=== PATIENT | female | born 1995 | race Caucasian/White ===

== ENCOUNTER 2018-03-26 10:09 | Outpatient (CLI) | payer OTHER, SELFPAY ==
[2018-03-26 11:07] LABS: Abs Immature Grans 0.01 k/cumm (0.0-0.09); Absolute Basophil Count 0.01 k/cumm (0.0-0.2); Absolute Eosinophil Count 0.02 k/cumm (0.0-0.7); Absolute Lymphocyte Count 1.48 k/cumm (1.2-3.4); Absolute Monocyte Count 0.63 k/cumm (0.11-0.7); Absolute Neutrophil Count 6.79 k/cumm (1.2-6.7); Basophils % 0.1; Eosinophils % 0.2; HCT 36.6 % (36.0-46.0); HGB 12.7 g/dL (12.0-15.5); Immature Grans % 0.1; Lymphocytes % 16.6; Mean Corp. HGB Concentration 34.7 g/dL (32.0-36.0); Mean Corpuscular Hemoglobin 31.2 pg (27.0-33.0); Mean Corpuscular Volume 89.9 fL (80-95); Mean Platelet Volume 9.6 fL (8.0-11.0); Platelet Count 324 x1000/uL (130-400); RBC 4.07 m/cumm (4.00-5.20); RBC Distribution Width 11.8 % (11.7-14.6); White Blood Cell Count 8.94 k/cumm (4.4-10.8)
[2018-03-26 12:11] LABS: TSH (W/Ref FT4) 2.01 uIU/mL (0.358-3.74)
[2018-03-27 10:13] LABS: HIV-1/2 Ag & Ab Screen Negative (NEGAT)
[2018-03-29 10:14] LABS: Hepatitis B Surface Ag Negative (NEGAT)
[2018-03-29 11:01] LABS: Hepatitis C Ab w Rflx HCV PCR Negative (NEGAT)
[2018-03-29 12:41] LABS: Syphilis Serology (RPR) Negative (Negative); Varicella IgG Antibody Positive
[2018-03-29 12:49] LABS: Rubella IgG Ab (UVM) Positive
== END 2018-03-26 10:29 ==
PROVIDERS: PCP Nurse Practitioner Pediatrics; Visit Provider Advanced Practice Midwife
DX: Z34.01 Encounter for supervision of normal first pregnancy, first trimester (principal); Z01.84 Encounter for antibody response examination; Z11.4 Encounter for screening for human immunodeficiency virus [HIV]; Z11.59 Encounter for screening for other viral diseases; Z11.3 Encounter for screening for infections with a predominantly sexual mode of transmission
CPT/HCPCS: 36415; 80055; 86787; 86803; 86850; 86900; 86901; 87340; 87389; 84443; 86592; 86762

== ENCOUNTER 2018-03-26 11:52 | Outpatient (REF) | payer OTHER, SELFPAY ==
--- NOTE | 2018-03-26 09:00 | PAPFT_PTH ---
PATIENT: Sejal Kelly LOC: [facility] U#:[id number] AGE/SX: 22/F ROOM: RE03/26/[address]: Devika Shaw CNM : 1995 BED: DIS: 03/26/2018 SPEC #: [id number] RECD: 03/26/18 13:11 STATUS: ISABELLA REQ #: [id number] TERI: 03/26/18 09:[address]: Devika Shaw DEPT: [facility] Cytology RECD BY: Jordana Reeves ENTERED: 03/26/18 13:11 SP TYPE: PAPFT OTHR DR: Katie Ballesteros Tissues: 1 - CX/ENDOCX FOR PAP SMEARS Procedures: PAP THIN PREP/UVM Screening HPV DNA PROBE Comments: [id number]
[2018-03-26 13:34] LABS: *AMPHETAMINES SCREEN URINE Negative (Negative); *BARBITURATES SCREEN URINE Negative (Negative); *BENZODIAZEPINES SCREEN URINE Negative (Negative); Cannabinoids THC Negative (Negative); Cocaine Screen,Urine Negative (Negative); METHADONE URINE SCREEN Negative (Negative); OPIATES URINE SCREEN Negative (Negative)
[2018-03-26 13:35] LABS: Tricyclic Antidepressants Negative (Negative)
[2018-03-29 14:57] LABS: GC Result Negative; Specimen Description CERVIX
[2018-03-29 15:08] LABS: Chlamydia Result Positive
[2018-03-31 08:09] LABS: Buprenorphine Negative; Norbuprenorphine Negative
== END 2018-03-26 12:12 ==
LOC: LBN 11:52
PROVIDERS: PCP Nurse Practitioner Pediatrics; Visit Provider Advanced Practice Midwife
DX: Z12.4 Encounter for screening for malignant neoplasm of cervix (principal); Z11.3 Encounter for screening for infections with a predominantly sexual mode of transmission; Z34.01 Encounter for supervision of normal first pregnancy, first trimester
CPT/HCPCS: 80307; 87077; 87491; 87591; 88142; 87086; 87624

== ENCOUNTER 2018-04-12 15:51 | Outpatient (CLI) | payer OTHER, SELFPAY ==
--- NOTE | 2018-04-12 09:00 | DI.US_ITS ---
SYMPTOMS/DIAGNOSIS: DI-MONO TWINS WITH NO HEART RATE AT 13 WEEKS ESTIMATE GESTATIONAL AGE, O02.1-MISSED OB ULTRASOUND: Many abnormalities cannot be diagnosed. A normal exam does not exclude a congenital anomaly. Radiology No. [id number] LMP: Exam Date: 04/12/18 [facility] wks days on EDC ([facility]) Confirmed: HISTORY: ---- PREDICTED GESTATIONAL AGE NUMBER 13+2 weeks with a range of 12+2 weeks to 14+2 weeks. 2 Determined by_X__1STUS___LMP___HISTORY Info. pertaining to fetus A PLACENTA PRESENTATION Grade Cephalic___ Anterior___Posterior___ Breech____ Right Left Transverse(head right___ Fundal___Low-lying___Previa___ Transverse(head left___ Varying BIOMETRY AMNIOTIC FLUID BPD: mm weeks Normal HC: mm weeks Oligo Polyhydramnios AC: mm weeks FL: mm weeks AMNIOTIC FLUID INDEX >26 WK CRL: 22 mm 8+6 weeks Cisterna Magna: mm CI: RUQ: LUQ Cerebellum: cm EFW: grams Percentile RLQ: LLQ Total: cms Composite AGE= wks EDC by US BIOPHYSICAL PROFILE ANATOMY IDENTIFIED SCORE 0/2 Heart: 4-Chamber___Rate: NO HEART RATE LVOT: RVOT: Amniotic Fluid(>2cms)____ Stomach: Kidneys: Respirations (>30 secs) Bladder: Post. Fossa: Body Flex/Extension 3 vessel cord: Ventricles: cord insertion: Lips:____ Extremity Flex/Extension spinal morphology: Nose: Total Score= Palate: NS=not seen Many abnormalities cannot be diagnosed. A normal exam does not exclude a congenital anomaly. Radiology No. [id number] LMP: Exam Date: 04/12/18 [facility] wks days on EDC ([facility]) Confirmed: HISTORY: ---- PREDICTED GESTATIONAL AGE NUMBER 13+2 weeks with a range of 12+2 weeks to 14+2 weeks. 2 Determined by_X__1STUS___LMP___HISTORY Info. pertaining to fetus B PLACENTA PRESENTATION Grade Cephalic___ Anterior___Posterior___ Breech____ Right Left Transverse(head right___ Fundal___Low-lying___Previa___ Transverse(head left___ Varying BIOMETRY AMNIOTIC FLUID BPD: mm weeks Normal HC: mm weeks Oligo Polyhydramnios AC: mm weeks FL: mm weeks AMNIOTIC FLUID INDEX >26 WK CRL: 22 mm 8+6 weeks Cisterna Magna: mm CI: RUQ: LUQ Cerebellum: cm EFW: grams Percentile RLQ: LLQ Total: cms Composite AGE= wks EDC by US BIOPHYSICAL PROFILE ANATOMY IDENTIFIED SCORE 0/2 Heart: 4-Chamber___Rate: NO HEART RATE LVOT: RVOT: Amniotic Fluid(>2cms)____ Stomach: Kidneys: Respirations (>30 secs) Bladder: Post. Fossa: Body Flex/Extension 3 vessel cord: Ventricles: cord insertion: Lips:____ Extremity Flex/Extension spinal morphology: Nose: Total Score= Palate: NS=not seen COMMENTS: There are no prior comparison exams. There is a twin gestation. Two poles are identified with crown-rump length measurements corresponding to 8 weeks 6 days, which is significantly less than the predicted gestational age. No cardiac activity is identified. IMPRESSION: Nonviable twin gestation.
== END 2018-04-12 16:11 ==
PROVIDERS: PCP Nurse Practitioner Pediatrics; Visit Provider Obstetrics & Gynecology Gynecology
DX: O02.1 Missed abortion (principal)
CPT/HCPCS: 76801; 76802

== ENCOUNTER 2018-04-14 06:10 | Day surgery (SDC) | payer OTHER, SELFPAY ==
[2018-04-14] VITALS (7 sets, daily range): BP systolic 110–129; BP diastolic 66–79; PULSE 71–100; RESP 10–23; TEMP 36.3–37.8; O2SAT 96–100
[2018-04-14 06:54] LABS: HCT 39.8 % (36.0-46.0); HGB 13.9 g/dL (12.0-15.5); Mean Corp. HGB Concentration 34.9 g/dL (32.0-36.0); Mean Corpuscular Hemoglobin 31.4 pg (27.0-33.0); Mean Platelet Volume 10.2 fL (8.0-11.0); Platelet Count 309 x1000/uL (130-400); RBC 4.42 m/cumm (4.00-5.20); RBC Distribution Width 11.8 % (11.7-14.6); White Blood Cell Count 11.81 k/cumm (4.4-10.8)
[2018-04-14] MEDS: DOXYCYCLINE 100 MG in Normal Saline 100 ML IVPB (07:04)
[2018-04-14] MEDS: Lactated Ringers 1,000 ML 125 ML IV (07:04)
[2018-04-14] MEDS: Bupivacaine 0.25% Pres-Free 30 ML VIAL (08:10)
--- NOTE | 2018-04-14 08:10 | POCSPONT_PTH ---
PATIENT: Sejal Kelly LOC: [facility] U#:[id number] AGE/SX: 22/F ROOM: RE04/14/[address]: Shanell Frazier : 1995 BED: DIS: 04/14/2018 SPEC #: [id number] RECD: 04/14/18 12:43 STATUS: ISABELLA REQ #: [id number] TERI: 04/14/18 08:[address]: Shanell Frazier DEPT: Surgical Specimen RECD BY: Jordana Reeves ENTERED: 04/14/18 12:43 SP TYPE: POCSPONT OTHR DR: Katie Ballesteros Tissues: 1 - ,SPONTANEOUS Procedures: GROSS AND MICRO LEVEL 4 IMMUNOPEROXIDASE STAIN POC Aneuploidy Detection, FISH Comments: [id number]
[2018-04-14] MEDS: Silver Nitrate Stick 1 EACH (08:25)
--- NOTE | 2018-04-15 17:25 | ROE_ITS ---
DATE OF PROCEDURE: April 14, 2018 PREOPERATIVE DIAGNOSIS: Embryonic demise of a twin gestation at 13 weeks and 2 days. POSTOPERATIVE DIAGNOSIS: Same. PROCEDURE: Cervical dilatation and uterine suction evacuation of tissue. SURGEON: Shanell Frazier M.D. GRAPPLE YARDER OPERATOR: None. ANESTHESIA: Monitored anesthesia care by Mario Wisdom CRNA, and AUDREY Ramos. FLUIDS: 500 cc of crystalloid. URINE OUTPUT: The patient voided prior to the OR. ESTIMATED BLOOD LOSS: 10 cc DRAINS: None. SPECIMENS: Products of conception to Pathology. COMPLICATIONS: None. DISPOSITION: Awakened, alert, to recovery area in stable condition. INDICATIONS: Nevbpr-krh-gwzj-old, G1, P0 female with a document diamnionic-monochorionic twin gestat ion diagnosed at 9 weeks' estimated gestational age. The patient was found to have a nonviable pregn rico on a routine follow-up ultrasound performed at [facility] at 13 weeks 2 days. Confirmatory ultrasound was performed in Diagnostic Imaging. poles were present but no evidenc e of heart rates and the crown-rump length of both fetuses was approximately 7 weeks 5 days. T he patient was counseled regarding the risks of expectant management versus the risks of a dilatation and curettage and I strongly recommended dilatation and curettage, which she agreed to. FINDINGS AT THE TIME OF SURGERY: The uterus sounded to 10 cm. I was able to deliver intact the amni otic sac and attached chorion. The uterus responded well to fundal massage. DESCRIPTION OF PROCEDURE: The patient was taken to the Operating Room and placed in the dorsal supin e position. Monitored anesthesia care was administered without difficulty. She was then placed in t he dorsal lithotomy position with Yellofin stirrups and SCDs in place. A bivalve speculum was placed in the vagina. The anterior lip of the cervix was grasped with a single-tooth tenaculum and a parac ervical block using 5 cc of 0.25% Marcaine without epinephrine was injected into the paracervical spa ce at the 4 and 8 o'clock positions respectively. The vagina and perineum was prepped and draped tony or to the insertion of the speculum and the paracervical block. The cervix was sequentially dilated to a maximum of 19 German. An 8-mm curved suction cannula was linda anju into the uterine cavity and all four quadrants of the uterine cavity were sequentially dilated. Amniotic fluid was returned, followed by the products of conception which were then teased out intact with a ring forceps. A second pass of the suction cannula obtained more products of conception. A banjo curette was then used to curette all four quadrants of the uterine cavity until a gritty textur e was returned and minimal tissue was recovered. The banjo curette was removed and a final pass of t he suction curette was performed, once again with very little tissue returns. The instruments were r emoved from the patient's vagina. The tenaculum site was noted to be hemostatic. All sponge, lap, and needle counts were correct x2.
== END 2018-04-14 10:14 | disposition home or self-care (01) ==
LOC: SUR 06:11
PROVIDERS: PCP Nurse Practitioner Pediatrics; Visit Provider Obstetrics & Gynecology Gynecology
PROC: (CPT 59841; principal; 2018-04-14 07:30)
DX: O02.1 Missed abortion (principal)
CPT/HCPCS: 59820; 36415; 85027; 86850; 86900; 86901; 88305; 88271; 88291; 88361; J0131; J1100; J1885; J2250; J2405; J3010

== ENCOUNTER 2019-01-25 14:05 | Outpatient (REF) | payer OTHER, SELFPAY ==
[2019-01-26 13:32] LABS: Chlamydia Result Negative; GC Result Negative; Specimen Description URINE
== END 2019-01-25 14:25 ==
LOC: LBN 14:05
PROVIDERS: Visit Provider Nurse Practitioner Family
DX: Z11.3 Encounter for screening for infections with a predominantly sexual mode of transmission (principal)
CPT/HCPCS: 87491; 87591

== ENCOUNTER 2019-02-15 15:34 | Outpatient (REF) | payer OTHER, SELFPAY ==
--- NOTE | 2019-02-15 14:00 | PAPFT_PTH ---
PATIENT: Sejal Kelly LOC: [facility] U#:[id number] AGE/SX: 23/F ROOM: RE02/15/[address]: Devika Shaw CNM : 1995 BED: DIS: 02/15/2019 SPEC #: [id number] RECD: 02/15/19 17:57 STATUS: ISABELLA REQ #: [id number] TERI: 02/15/19 14:[address]: Devika Shaw [facility] Cytology RECD BY: Jordana Reeves ENTERED: 02/15/19 17:58 SP TYPE: PAPFT OTHR DR: Unknown,Unknown Tissues: 1 - CX/ENDOCX FOR PAP SMEARS Procedures: PAP THIN PREP/UVM Screening HPV DNA PROBE Comments: [id number] (CHLAMYDIA/GC)
[2019-02-15 16:52] LABS: *AMPHETAMINES SCREEN URINE Negative (Negative); *BARBITURATES SCREEN URINE Negative (Negative); *BENZODIAZEPINES SCREEN URINE Negative (Negative); Cannabinoids THC Negative (Negative); Cocaine Screen,Urine Negative (Negative); METHADONE URINE SCREEN Negative (Negative); OPIATES URINE SCREEN Negative (Negative)
[2019-02-15 17:09] LABS: Tricyclic Antidepressants Negative (Negative)
[2019-02-16 13:55] LABS: Chlamydia Result Negative; GC Result Negative; Specimen Description SEE COMMENTS
[2019-02-23 16:08] LABS: Buprenorphine Negative; Norbuprenorphine Negative
== END 2019-02-15 15:54 ==
LOC: LBN 15:34
PROVIDERS: Visit Provider Advanced Practice Midwife
DX: Z34.91 Encounter for supervision of normal pregnancy, unspecified, first trimester (principal); Z11.3 Encounter for screening for infections with a predominantly sexual mode of transmission; Z12.4 Encounter for screening for malignant neoplasm of cervix
CPT/HCPCS: 80307; 87491; 87591; 88142; 87086; 87624

== ENCOUNTER 2019-02-19 08:45 | Outpatient (CLI) | payer OTHER, SELFPAY ==
[2019-02-19 09:45] LABS: Abs Immature Grans 0.01 k/cumm (0.0-0.09); Absolute Basophil Count 0.02 k/cumm (0.0-0.2); Absolute Eosinophil Count 0.07 k/cumm (0.0-0.7); Absolute Lymphocyte Count 1.39 k/cumm (1.2-3.4); Absolute Monocyte Count 0.52 k/cumm (0.11-0.7); Absolute Neutrophil Count 5.87 k/cumm (1.2-6.7); Basophils % 0.3; Eosinophils % 0.9; HCT 37.9 % (36.0-46.0); HGB 13.1 g/dL (12.0-15.5); Immature Grans % 0.1; Lymphocytes % 17.6; Mean Corp. HGB Concentration 34.6 g/dL (32.0-36.0); Mean Corpuscular Volume 89.6 fL (80-95); Mean Platelet Volume 9.4 fL (8.0-11.0); Monocytes % 6.6; Neutrophils % 74.5; Platelet Count 346 x1000/uL (130-400); RBC 4.23 m/cumm (4.00-5.20); RBC Distribution Width 11.7 % (11.7-14.6); White Blood Cell Count 7.88 k/cumm (4.4-10.8)
[2019-02-19 10:01] LABS: Glucose,1 Hr (Glucola) 101 mg/dL (80-140)
[2019-02-19 11:13] LABS: TSH (W/Ref FT4) 1.88 uIU/mL (0.36-3.74)
[2019-02-21 10:58] LABS: Rubella IgG Ab (UVM) Positive
[2019-02-21 11:29] LABS: Hepatitis B Surface Ag Negative (NEGAT)
[2019-02-21 11:33] LABS: Hepatitis C Ab w Rflx HCV PCR Negative (NEGAT)
[2019-02-21 11:34] LABS: HIV-1/2 Ag & Ab Screen Negative (NEGAT)
[2019-02-21 11:41] LABS: Varicella IgG Antibody Positive
[2019-02-22 13:04] LABS: Syphilis Total Ab w/Reflex Nonreactive (Nonreactive)
== END 2019-02-19 09:05 ==
PROVIDERS: Visit Provider Advanced Practice Midwife
DX: Z34.91 Encounter for supervision of normal pregnancy, unspecified, first trimester (principal); Z11.59 Encounter for screening for other viral diseases; Z11.4 Encounter for screening for human immunodeficiency virus [HIV]
CPT/HCPCS: 36415; 82950; 86787; 86803; 87340; 87389; 84443; 85025; 86762; 86780

== ENCOUNTER 2019-04-12 01:18 | Outpatient (CLI) | payer OTHER, SELFPAY ==
--- NOTE | 2019-04-12 12:27 | DI.US_ITS ---
EXAM: US OB 2-3 TRIMESTER CLINICAL HISTORY: survey Z34.90 SUPERVISION NORMAL TECHNIQUE: Ultrasound performed using standard protocol. COMPARISON: No exams were available for comparison FINDINGS: Fetus is in cephalic position. The placenta is posterior. The biometric measurements correspond to 17 weeks 5 days which is consistent with predicted gestational age. No abnormalities are seen . The amniotic fluid appears visually normal in volume. IMPRESSION: survey is within normal limits.
== END 2019-04-12 01:38 ==
PROVIDERS: Visit Provider Advanced Practice Midwife
DX: Z34.92 Encounter for supervision of normal pregnancy, unspecified, second trimester (principal)
CPT/HCPCS: 76805

== ENCOUNTER 2019-06-28 08:15 | Outpatient (CLI) | payer OTHER, SELFPAY ==
[2019-06-28 08:44] LABS: Glucose,1 Hr (Glucola) 131 mg/dL (80-140)
[2019-06-28 08:46] LABS: HCT 33.7 % (36.0-46.0); HGB 11.5 g/dL (12.0-15.5); Mean Corp. HGB Concentration 34.1 g/dL (32.0-36.0); Mean Corpuscular Volume 90.8 fL (80-95); Mean Platelet Volume 9.1 fL (8.0-11.0); Platelet Count 288 x1000/uL (130-400); RBC 3.71 m/cumm (4.00-5.20); RBC Distribution Width 12.8 % (11.7-14.6); White Blood Cell Count 9.59 k/cumm (4.4-10.8)
== END 2019-06-28 08:35 ==
PROVIDERS: Advanced Practice Midwife; Visit Provider Advanced Practice Midwife
DX: Z34.92 Encounter for supervision of normal pregnancy, unspecified, second trimester (principal)
CPT/HCPCS: 36415; 82950; 85027

== ENCOUNTER 2019-08-23 12:53 | Outpatient (REF) | payer OTHER, SELFPAY ==
[2019-08-23 14:21] LABS: *AMPHETAMINES SCREEN URINE Negative (Negative); *BARBITURATES SCREEN URINE Negative (Negative); *BENZODIAZEPINES SCREEN URINE Negative (Negative); Cannabinoids THC Negative (Negative); Cocaine Screen,Urine Negative (Negative); METHADONE URINE SCREEN Negative (Negative); OPIATES URINE SCREEN Negative (Negative); Tricyclic Antidepressants Negative (Negative)
[2019-08-26 11:34] LABS: Buprenorphine Negative; Norbuprenorphine Negative
== END 2019-08-23 13:13 ==
LOC: LBN 12:53
PROVIDERS: Visit Provider Advanced Practice Midwife
DX: Z34.93 Encounter for supervision of normal pregnancy, unspecified, third trimester (principal); Z36.85 Encounter for antenatal screening for Streptococcus B
CPT/HCPCS: 80307; 87081

== ENCOUNTER 2019-09-23 10:08 | Inpatient (IN) | payer OTHER, SELFPAY ==
[2019-09-23 09:07] LABS: ROM Plus Positive
[2019-09-23] MEDS: miSOPROStol 25 MCG TAB 50 MCG PO (10:39)
[2019-09-23 11:19] LABS: HCT 36.2 % (36.0-46.0); HGB 12.6 g/dL (12.0-15.5); Mean Corp. HGB Concentration 34.8 g/dL (32.0-36.0); Mean Corpuscular Hemoglobin 30.9 pg (27.0-33.0); Mean Corpuscular Volume 88.7 fL (80-95); Mean Platelet Volume 9.6 fL (8.0-11.0); Platelet Count 268 x1000/uL (130-400); RBC 4.08 m/cumm (4.00-5.20); RBC Distribution Width 12.9 % (11.7-14.6); White Blood Cell Count 11.37 k/cumm (4.4-10.8)
[2019-09-23] MEDS: miSOPROStol 25 MCG TAB PO (16:25)
[2019-09-23] MEDS: Lactated Ringers 1,000 ML 125 ML IV (20:46)
[2019-09-23] MEDS: miSOPROStol 25 MCG TAB (20:46)
[2019-09-23] MEDS: Zolpidem 5 MG TAB 10 MG PO (20:49)
[2019-09-24] MEDS: Hamamelis Leaf/Glycerin 100 EACH BOX PR (08:20)
[2019-09-24] MEDS: Acetaminophen 325 MG TAB 650 MG PO (08:20)
[2019-09-24] MEDS: Ibuprofen 600 MG TAB PO ×2 (08:21→23:50)
[2019-09-24] MEDS: oxyCODONE 5 mg/Acetaminophen 325 mg TAB 2 TAB PO ×3 (12:50→23:49)
[2019-09-24] MEDS: Docusate Sodium 100 MG CAP PO (23:50)
[2019-09-25 07:29] LABS: HCT 24.1 % (36.0-46.0); HGB 8.2 g/dL (12.0-15.5); Mean Corpuscular Hemoglobin 30.9 pg (27.0-33.0); Mean Corpuscular Volume 90.9 fL (80-95); Mean Platelet Volume 9.4 fL (8.0-11.0); Platelet Count 263 x1000/uL (130-400); RBC 2.65 m/cumm (4.00-5.20); RBC Distribution Width 12.9 % (11.7-14.6); White Blood Cell Count 12.12 k/cumm (4.4-10.8)
[2019-09-25] MEDS: oxyCODONE 5 mg/Acetaminophen 325 mg TAB 2 TAB PO ×2 (08:55→20:55)
[2019-09-25] MEDS: Ibuprofen 600 MG TAB PO ×2 (13:59→20:56)
[2019-09-25] MEDS: Docusate Sodium 100 MG CAP PO (20:56)
[2019-09-26] MEDS: Ibuprofen 600 MG TAB PO ×2 (06:32→13:41)
[2019-09-26] MEDS: oxyCODONE 5 mg/Acetaminophen 325 mg TAB 2 TAB PO (07:31)
[2019-09-26] MEDS: Docusate Sodium 100 MG CAP PO (13:41)
--- NOTE | 2019-09-29 14:38 | W.PM.OP ---
Date of service: 09/24/19 Time of Service: 06:45 Operative Note Operative Note DATE OF PROCEDURE: 09/24/19 PRE-OP DIAGNOSIS: Second-degree vaginal laceration, bilateral vaginal sulcus tears POST-OP DIAGNOSIS: same PROCEDURE: Repair of second-degree perineal laceration at bedside SURGEON: Shanell Frazier ASSEMBLIES AND INSTALLATIONS INSPECTOR: Lizy Washington ANESTHESIA: local ESTIMATED BLOOD LOSS: 300 PATHOLOGY: none sent COMPLICATIONS: None Patient was transported to: no change Patient's condition: stable Indications: 24-year-old G1 female who underwent a spontaneous vaginal delivery of a viable female infant weighing 7 pounds 3 ounces at approximately 06 29 on 09/24/2019. Patient sustained a second-degree laceration and Lizy Washington CNM, the delivering provider requested help with the repair. Findings: Avulsion of the vaginal epithelium from the right vaginal sidewall of the vaginal orifice. Complete tear through the bulbocavernosus and superficial transverse perineal muscle to the level of the capsule of the anal sphincter, which was intact. This is confirmed by a digital rectal exam. Procedure Description: A total of 10 cc of 1% lidocaine without epinephrine was infiltrated along the edges of the vaginal epithelium of the right sidewall and perineal body. A running suture of 2-0 Vicryl was used to reapproximate the epithelial edges of the skin avulsion along the right vaginal wall to the level of the introitus. The midline sulcus tear was reapproximated using a running suture of 3-0 Vicryl to the low the perineal body several small lacerations of the hymenal remnant were reapproximated also with 3-0 Vicryl for hemostasis. 2 interrupted sutures of 2-0 Vicryl were used to reapproximate the bulbocavernosus muscle followed by a end-to-end reapproximation of the superficial transverse perineal muscle once again using 2-0 Vicryl. Tissue of the perineal body was reapproximated with 2 interrupted sutures of 2-0 Vicryl. Subcuticular closure using 3-0 Vicryl was used to reapproximate the edges of the epithelium of the perineal body to the level of the vaginal orifice. Awls sponge and needle counts are correct x2
== END 2019-09-26 14:00 | disposition home or self-care (01) | DRG 768 ==
LOC: OBS 10:18
PROVIDERS: Admitting Provider Advanced Practice Midwife; Visit Provider Advanced Practice Midwife
DX: O48.0 Post-term pregnancy (principal); Z37.0 Single live birth; O70.20 Third degree perineal laceration during delivery, unspecified; Z3A.41 41 weeks gestation of pregnancy; O76 Abnormality in fetal heart rate and rhythm complicating labor and delivery; O90.89 Other complications of the puerperium, not elsewhere classified; I95.89 Other hypotension
CPT/HCPCS: 36415; 84112; 85027; 86850; 86900; 86901; 59025; J3490

== ENCOUNTER 2019-10-07 01:35 | Outpatient (CLI) | payer OTHER, SELFPAY ==
[2019-10-07 10:03] LABS: HCT 36.1 % (36.0-46.0); HGB 12.3 g/dL (12.0-15.5); Mean Corp. HGB Concentration 34.1 g/dL (32.0-36.0); Mean Corpuscular Hemoglobin 30.1 pg (27.0-33.0); Mean Corpuscular Volume 88.5 fL (80-95); Mean Platelet Volume 8.3 fL (8.0-11.0); RBC 4.08 m/cumm (4.00-5.20); RBC Distribution Width 12.3 % (11.7-14.6); White Blood Cell Count 8.87 k/cumm (4.4-10.8)
[2019-10-07 10:33] LABS: Platelet Count 621 x1000/uL (130-400)
== END 2019-10-07 01:55 ==
PROVIDERS: Visit Provider Advanced Practice Midwife
DX: D64.9 Anemia, unspecified (principal)
CPT/HCPCS: 36415; 85027

== ENCOUNTER 2020-10-12 01:29 | Outpatient (CLI) | payer OTHER, SELFPAY ==
[2020-10-12 15:25] LABS: Glucose,1 Hr (Glucola) 118 mg/dL (80-140)
[2020-10-12 15:26] LABS: Abs Immature Grans 0.04 10^3/uL (0.0-0.06); Absolute Basophil Count 0.02 10^3/uL (0.0-0.2); Absolute Eosinophil Count 0.16 10^3/uL (0.0-0.7); Absolute Lymphocyte Count 2.04 10^3/uL (1.2-3.4); Absolute Monocyte Count 0.47 10^3/uL (0.1-0.8); Basophils % 0.2; Eosinophils % 1.5; HCT 36.9 % (36.0-46.0); HGB 12.5 g/dL (11.2-15.7); Immature Grans % 0.4; MCHC 33.9 % (32.0-36.0); MCV 85.6 fL (80-95); MPV 9.3 fL (8.0-11.0); Monocytes % 4.4; Neutrophils % 74.5; Nucleated RBC 0 %; Platelet Count 361 10^3/uL (130-400); RBC 4.31 10^6/uL (3.93-5.22); RDW 12.1 % (11.7-14.6); RDW-SD 38.2 fL; WBC 10.73 10^3/uL (4.4-10.8)
[2020-10-12 16:03] LABS: TSH (W/Ref FT4) 1.46 uIU/mL (0.36-3.74)
[2020-10-15 10:12] LABS: HIV-1/2 Ag & Ab Screen Negative (Negative)
[2020-10-15 10:32] LABS: Varicella IgG Antibody Positive (See Note)
[2020-10-15 10:34] LABS: Rubella IgG Ab (UVM) Positive (See Note)
[2020-10-15 11:15] LABS: Hepatitis B Surface Ag Negative (Negative)
[2020-10-15 12:11] LABS: Hepatitis C Ab w Rflx HCV PCR Negative (Negative)
[2020-10-15 14:04] LABS: Syphilis Total Ab w/Reflex Nonreactive (Nonreactive)
== END 2020-10-12 01:30 | disposition home or self-care (01) ==
LOC: LBO 01:30
PROVIDERS: Visit Provider Advanced Practice Midwife
DX: Z34.91 Encounter for supervision of normal pregnancy, unspecified, first trimester (principal); Z11.4 Encounter for screening for human immunodeficiency virus [HIV]; Z11.59 Encounter for screening for other viral diseases; Z01.84 Encounter for antibody response examination
CPT/HCPCS: 36415; 80307; 82950; 86787; 86803; 86850; 86900; 86901; 87340; 87389; 84443; 85025; 86762; 86780

== ENCOUNTER 2020-10-12 15:35 | Outpatient (REF) | payer OTHER, SELFPAY ==
--- NOTE | 2020-10-12 14:30 | PAPFT_PTH ---
PATIENT: Sejal Kelly LOC: [facility] U#:[id number] AGE/SX: 25/F ROOM: RE10/12/[address]: Annette Walton : 1995 BED: DIS: 10/12/2020 SPEC #: [id number] RECD: 10/12/20 17:18 STATUS: ISABELLA REBailey #: [id number] TERI: 10/12/20 14:[address]: Annette Walton DEPT: [facility] Cytology RECD BY: Jordana Reeves ENTERED: 10/12/20 17:18 SP TYPE: PAPFT KVNG DR: Angela Valles Tissues: 1 - CX/ENDOCX FOR PAP SMEARS Procedures: PAP THIN PREP/UVM Screening Comments: [id number]
[2020-10-12 16:15] LABS: *AMPHETAMINES SCREEN URINE Negative (Negative); *BARBITURATES SCREEN URINE Negative (Negative); *BENZODIAZEPINES SCREEN URINE Negative (Negative); Cannabinoids THC Negative (Negative); Cocaine Screen,Urine Negative (Negative); METHADONE URINE SCREEN Negative (Negative); OPIATES URINE SCREEN Negative (Negative)
[2020-10-12 16:16] LABS: Tricyclic Antidepressants Negative (Negative)
[2020-10-17 07:12] LABS: Chlamydia Result Negative (Negative); GC Result Negative (Negative)
[2020-10-18 13:08] LABS: Buprenorphine Negative ng/mL (Cutoff: 5.0); Norbuprenorphine Negative ng/mL (Cutoff: 2.5)
== END 2020-10-12 15:36 | disposition home or self-care (01) ==
LOC: LBN 15:35
PROVIDERS: Visit Provider Advanced Practice Midwife
DX: Z34.91 Encounter for supervision of normal pregnancy, unspecified, first trimester (principal); Z11.3 Encounter for screening for infections with a predominantly sexual mode of transmission; Z12.4 Encounter for screening for malignant neoplasm of cervix; Z87.42 Personal history of other diseases of the female genital tract
CPT/HCPCS: 80307; 87491; 87591; 88142; 87086

== ENCOUNTER 2021-01-30 03:34 | Outpatient (CLI) | payer OTHER, SELFPAY ==
[2021-01-30 11:55] LABS: HCT 32.4 % (36.0-46.0); HGB 10.7 g/dL (11.2-15.7); MCV 87.8 fL (80-95); MPV 9.5 fL (8.0-11.0); Platelet Count 283 10^3/uL (130-400); RBC 3.69 10^6/uL (3.93-5.22); RDW 12.9 % (11.7-14.6); RDW-SD 41.1 fL; WBC 10.57 10^3/uL (4.4-10.8)
[2021-01-30 12:02] LABS: Glucose,1 Hr (Glucola) 123 mg/dL (80-140)
== END 2021-01-30 03:35 | disposition home or self-care (01) ==
LOC: LBO 03:35
PROVIDERS: Visit Provider Advanced Practice Midwife
DX: Z34.93 Encounter for supervision of normal pregnancy, unspecified, third trimester (principal); Z3A.28 28 weeks gestation of pregnancy
CPT/HCPCS: 36415; 82950; 85027

== ENCOUNTER 2021-03-19 01:39 | Outpatient (CLI) | payer OTHER, SELFPAY ==
--- NOTE | 2021-03-19 07:45 | DI.US_ITS ---
Exam(s) US OB AVA WEIGHT EXAM: US OB AVA WEIGHT CLINICAL HISTORY: size greater than dates on 3 visits,O26.849. TECHNIQUE: Transabdominal obstetrical ultrasound performed. COMPARISON: US US OB 2-3 TRIMESTER from 12/05/2020 FINDINGS: Transabdominal obstetrical ultrasound performed. FINDINGS: Number of fetuses: One. position: Cephalic. Placental location: There is a grade 2 anterior placenta. No evidence of previa. BIOMETRIC DATA: BPD: 87 mm = 35 weeks 1 day HC: 318 mm = 35 weeks 6 days AC: 329 mm = 36 weeks 6 days FL: 69 mm = 35 weeks 3 days EFW: 2871 grms 90% Composite Age: 35 weeks 6 days EDC: 04/17/2021 Heart Rate: 136BPM Amniotic fluid index: 20.5 cm. Visually, amount of fluid is upper limits of normal. IMPRESSION: 1. Single live intrauterine gestation as above. 2. Estimated weight is 2871gms. 3. Amniotic fluid index is 20.5 cm. Upper limits of normal. DATA REPOSITORY:
== END 2021-03-19 01:59 ==
PROVIDERS: Visit Provider Advanced Practice Midwife
DX: O26.843 Uterine size-date discrepancy, third trimester (principal)
CPT/HCPCS: 76816

== ENCOUNTER 2021-03-28 19:59 | Emergency (ER) | payer OTHER, SELFPAY ==
[2021-03-28 20:12] VITALS: BP 138/70; PULSE 94; RESP 18; TEMP 36.3; O2SAT 98
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
[2021-03-28] MEDS: Normal Saline 500 ML IV (21:17)
[2021-03-28] MEDS: Normal Saline 1,000 ML 1000 ML IV (21:20)
[2021-03-28 21:33] LABS: Abs Immature Grans 0.05 10^3/uL (0.0-0.06); Absolute Basophil Count 0.02 10^3/uL (0.0-0.2); Absolute Eosinophil Count 0.12 10^3/uL (0.0-0.7); Absolute Lymphocyte Count 1.86 10^3/uL (1.2-3.4); Absolute Monocyte Count 0.66 10^3/uL (0.1-0.8); Basophils % 0.2; HCT 32.9 % (36.0-46.0); HGB 10.8 g/dL (11.2-15.7); Immature Grans % 0.4; Lymphocytes % 14.9; MCH 28.3 pg (27.0-33.0); MCHC 32.8 % (32.0-36.0); MCV 86.4 fL (80-95); MPV 9.9 fL (8.0-11.0); Monocytes % 5.3; Neutrophils % 78.2; Nucleated RBC 0 %; Platelet Count 279 10^3/uL (130-400); RBC 3.81 10^6/uL (3.93-5.22); RDW 13.4 % (11.7-14.6); RDW-SD 41.4 fL; WBC 12.47 10^3/uL (4.4-10.8)
[2021-03-28 21:34] LABS: Bilirubin Negative (Negative); Blood Negative (Negative); Clarity Cloudy (Clear); Glucose Negative (Negative); Ketones 15 mg/dL (Negative); Leukocyte Esterase Trace (Negative); Nitrite Negative (Negative); Specific Gravity 1.025 (1.005-1.025); Urobilinogen 0.2 EU/dL (Up TO 0.2)
[2021-03-28 21:42] LABS: Absolute Neutrophil Count 9.75 10^3/uL (1.2-6.7)
[2021-03-28 21:44] LABS: ALT 15 U/L (14-59); AST 17 U/L (15-37); Albumin 2.7 g/dL (3.4-5.0); Alkaline Phosphatase 121 U/L (46-116); Anion Gap 6.5 mmol/L (3-11); BUN 8 mg/dL (7-18); Bilirubin, Total 0.4 mg/dL (0.2-1.0); CO2 25.5 mmol/L (21.0-32.0); CREATININE 0.6 mg/dL (0.55-1.02); Calcium 9.6 mg/dL (8.5-10.1); Chloride 105 mmol/L (98-107); Glucose 85 mg/dL (74-106); Potassium 3.7 mmol/L (3.5-5.1); Sodium 137 mmol/L (136-145); Total Protein 7.1 g/dL (6.4-8.2)
[2021-03-28 21:46] LABS: RBC Negative HPF (0-2); WBC Negative HPF (0-5)
[2021-03-28 21:47] LABS: Bacteria Negative HPF (Negative); C & S Indicated? No/Sq. Contamination; Casts Negative LPF (Negative); Crystals Many Amorphous HPF (Negative); Epithelial Cells Moderate HPF (Negative); Mucus Negative (Negative); Other Cells Negative (Negative)
[2021-03-28 22:07] LABS: D-Dimer 1771 ng/mlFEU (<500)
[2021-03-28 23:35] VITALS: BP 126/68; PULSE 80; RESP 18; TEMP 36.3
== END 2021-03-28 23:30 | disposition left against medical advice (07) ==
PROVIDERS: Emergency Provider Emergency Medicine
DX: O26.893 Other specified pregnancy related conditions, third trimester (principal); Z3A.36 36 weeks gestation of pregnancy; M54.6 Pain in thoracic spine; R07.81 Pleurodynia; Z53.29 Procedure and treatment not carried out because of patient's decision for other reasons
CPT/HCPCS: 80053; 96360; 99284; 81003; 81015; 85025; 85379; 99283

== ENCOUNTER 2021-04-02 15:04 | Outpatient (REF) | payer OTHER, SELFPAY ==
[2021-04-02 18:15] LABS: *AMPHETAMINES SCREEN URINE Negative (Negative); *BARBITURATES SCREEN URINE Negative (Negative); *BENZODIAZEPINES SCREEN URINE Negative (Negative); Cannabinoids THC Negative (Negative); Cocaine Screen,Urine Negative (Negative); METHADONE URINE SCREEN Negative (Negative); OPIATES URINE SCREEN Negative (Negative)
[2021-04-02 18:17] LABS: Tricyclic Antidepressants Negative (Negative)
[2021-04-06 12:30] LABS: Buprenorphine Negative ng/mL (Cutoff: 5.0); Norbuprenorphine Negative ng/mL (Cutoff: 2.5)
== END 2021-04-02 15:05 | disposition home or self-care (01) ==
LOC: LBN 15:04
PROVIDERS: Visit Provider Advanced Practice Midwife
DX: Z3A.36 36 weeks gestation of pregnancy (principal); Z34.93 Encounter for supervision of normal pregnancy, unspecified, third trimester
CPT/HCPCS: 80307; 87081

== ENCOUNTER 2021-04-03 09:38 | Outpatient (RCR) | payer OTHER, SELFPAY ==
[2021-04-03] MEDS: IRON SUCROSE COMPLEX 200 MG in Normal Saline 100 ML 440 MG IVPB (10:00)
== END 2021-04-21 23:59 | disposition home or self-care (01) ==
LOC: INF 09:38
PROVIDERS: Visit Provider Advanced Practice Midwife
DX: O99.013 Anemia complicating pregnancy, third trimester (principal); D50.9 Iron deficiency anemia, unspecified
CPT/HCPCS: 96365; J1756

== ENCOUNTER 2021-05-02 04:15 | Inpatient (IN) | payer OTHER, SELFPAY ==
[2021-05-02] VITALS (145 sets, daily range): BP systolic 98–145; BP diastolic 56–82; PULSE 73–118; RESP 16–20; TEMP 36.8–37.4; O2SAT 95–100; BMI 36.2
[2021-05-02 04:37] LABS: Source Nasal/Nares
[2021-05-02 05:28] LABS: COVID-19 PCR Negative (Negative)
[2021-05-02 07:14] LABS: HCT 33.2 % (36.0-46.0); HGB 10.9 g/dL (11.2-15.7); MCH 28.5 pg (27.0-33.0); MCHC 32.8 % (32.0-36.0); MCV 86.9 fL (80-95); MPV 9.7 fL (8.0-11.0); Platelet Count 231 10^3/uL (130-400); RBC 3.82 10^6/uL (3.93-5.22); RDW 14.1 % (11.7-14.6); WBC 10.06 10^3/uL (4.4-10.8)
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
--- NOTE | 2021-05-02 09:00 | ANES.PREOP_ITS ---
General Info Date of Service Date Performed: 05/02/21 Height: 5 ft 5 in Weight: 98.883 kg Body Mass Index (BMI): 36.2 Meds Allergies and Home Medications Allergies Allergy/AdvReac Type Severity Reaction Status Date / Time amoxicillin Allergy Intermediate Hives Verified 05/02/21 04:46 Home Medication Medication Instructions Recorded prenat.vits,mya,ncj-wjda-epjio 1 tab PO DAILY 09/03/20 cxarfgbfqr-mceyebhlceayj-djnasjyp 1 cap PO Q8H PRN #10 cap 11/14/20 50 mg-300 mg-40 mg capsule ferrous sulfate 325 mg (65 mg 325 mg PO DAILY #60 tab 03/29/21 iron) tablet Current Visit Medications: Current Medications Generic Name Dose Route Start Last Admin Trade Name Freq PRN Reason Stop Dose Admin Sodium Chloride 500 mls @ 0 mls/hr 05/02/21 04:33 Saline 500ml Bag IV PRN PRN As Directed IV Miscellaneous Supplies 1 each 05/02/21 04:45 Iv Access IV DIRECTED CATIE Sodium Chloride 0 ml 05/02/21 04:33 Normal Saline Flush 10 Ml Syr IVP PRN PRN PFSH Active Problems Active Problems: Problem Status Onset Code Spontaneous rupture of amniotic membranes Anemia affecting in third trimester O99.013 Upper back pain on right side M54.9 Allergy to amoxicillin Z88.0 Prior with demise, antepartum O09.299 Hx of endoscopy Z98.890 BMI 32.0-32.9,adult Z68.32 ASCUS (atypical squamous cells of undetermined significance) on gynecologic Papanicolaou smear complicating , antepartum Z34.90 Anemia D64.9 Medical History Medical History (Updated 05/02/21 @ 08:46 by Annette Walton CNM) 36 weeks gestation of Anxiety ASCUS (atypical squamous cells of undetermined significance) on gynecologic Papanicolaou smear complicating , antepartum BMI 32.0-32.9,adult Encounter for visit GERD (gastroesophageal reflux disease) Missed with demise before 20 completed weeks of gestation Nonviable dye amnionic monochorionic twin gestation at 13 weeks estimated gestational age Missed with demise before 20 completed weeks of gestation Multiple gestation Positive test , first, obstetrical care Right upper quadrant abdominal pain affecting Uterine size date discrepancy Surgical History Surgical History Hx of endoscopy GERD diagnosed Tobacco Smoking/Tobacco Use Status: Never Alcohol Alcohol Intake: former Substance Use Substance use: Rarely Substance use type: marijuana Prental History History 4 Para 1 Hx # Term Pregnancies 1 Multiple births 0 Hx # Pregnancies 0 Ectopic pregnancies 0 AB induced 1 Hx Number of Living Children 1 AB spontaneous 1 Past Pregnancies Del. Date GA/Weeks # Outcome Route Wgt Sex Labor Lgth Anesthes ia Location Prov Complic 04/08/18 Unsuccessful [facility] : Missed SAB of twin gestation @ 8 wks, D&C done at 13 wks 09/24/19 41 No Successful vaginal 3260.195 g Male 23 hrs [facility] - Anenatalie and Dr. Frazier 01/04/20 EAB Delivery Date: 04/08/18 No notes to display Delivery Date: 09/24/19 Miso IOL for PROM. Nitrous only for pain. 4 hours of pushing. CNM delivery, Second degree with vaginal sulcus lacerations repaired by MD. Post hemorrhage. Robyn Bowser Delivery Date: 01/04/20 Annette Laureano Vital Signs and Lab Results Vital Signs Most Recent Vital Signs in EMR: Most Recent Vital Signs Temp Pulse Resp BP Pulse Ox 36.8 C 91 H 20 126/72 99 05/02/21 08:13 05/02/21 08:13 05/02/21 08:13 05/02/21 08:13 05/02/21 04:37 Lab Results Result Diagrams: 05/02/21 06:43 Blood Type / Crossmatch: Patient ABO/Rh O Positive 05/02/21 06:43 05/02/21 Antibody Screen NEGATIVE 05/02/21 06:43 05/02/21 Complete Blood Count: White Blood Count 10.06 10^3/uL (4.4-10.8) 05/02/21 06:43 05/02/21 Red Blood Count 3.82 10^6/uL (3.93-5.22) L 05/02/21 06:43 05/02/21 Hemoglobin 10.9 g/dL (11.2-15.7) L 05/02/21 06:43 05/02/21 Hematocrit 33.2 % (36.0-46.0) L 05/02/21 06:43 05/02/21 Platelet Count 231 10^3/uL (130-400) 05/02/21 06:43 05/02/21 Complete Metabolic Panel: No Data to Display Liver Function Panel: No Data to Display Coagulation Panel: No Data to Display Cardiac Panel: No Data to Display Arterial Blood Gas: No Data to Display Venous Blood Gas: No Data to Display Pancreas Panel: No Data to Display Thyroid Panel: No Data to Display Infectious Disease: Coronavirus (COVID-19)(PCR) Negative (Negative) 05/02/21 04:30 05/02/21 Coronavirus 2019 Source Nasal/Nares 05/02/21 04:30 05/02/21 Blood Cultures: No Data to Display Toxicology Panel: Urine Amphetamines Screen Negative (Negative) 04/02/21 11:20 04/02/21 Urine Benzodiazepines Screen Negative (Negative) 04/02/21 11:20 04/02/21 Urine Barbiturates Screen Negative (Negative) 04/02/21 11:20 04/02/21 Urine Cocaine Screen Negative (Negative) 04/02/21 11:20 04/02/21 Urine Methadone Screen Negative (Negative) 04/02/21 11:20 04/02/21 Urine Opiates Screen Negative (Negative) 04/02/21 11:20 04/02/21 Ur Tricyclic Antidepressants Screen Negative (Negative) 04/02/21 11:20 04/02/21 Ur Tetrahydrocannabinol (THC) Scrn Negative (Negative) 04/02/21 11:20 04/02/21 Panel: No Data to Display Anesthesia Assessment and Plan Anesthesia History Personal History: No History of Anesthesia Complications Family History: No Family History of Anesthesia Complications Exercise Tolerance Exercise Tolerance: Metabolic Equivalents>4 Pertinent Negatives Pertinent Negatives: No Major Cardiovascular Symptoms or Complaints and No Major Pulmonary Symptoms or Complaints Cardiac & Pulmonary Exam Cardiac Exam: Normal S1/S2 Heart Sounds Pulmonary Exam: Clear Bilateral Breath Sounds Implantable Cardiac Device Does patient have a Pacemaker or an ICD?: No Airway Exam Known Difficult Airway: No Mallampati Class: 2 Mouth Opening: Normal (> 3cm) Thyromental Distance: Greater than 3 cm Neck Range of Motion: Full ROM Neck Circumference: Thick Teeth Condition: Normal Dentition ASA Classification ASA Score: ASA 2 Emergency Case?: No NPO Status NPO Status: Full Stomach Status Status: Confirmed Anesthesia Plan Resuscitation Status: Full Code Anesthesia Technique: Epidural Anesthesia Airway Planned: Natural Airway Monitors Used: Standard Monitors Preoperative Comments:: Reports significant GERD symptoms
[2021-05-02] MEDS: Lactated Ringers 1,000 ML 125 ML IV ×2 (09:30→13:38)
[2021-05-02] MEDS: Oxytocin/Normal Saline 30 UNIT/500 ML BAG 1 UNITS IV (09:45)
[2021-05-02] MEDS: Lactated Ringers 250 ML 500 ML IV (10:00)
--- NOTE | 2021-05-02 10:45 | W.PM.OBNL1 ---
Date of service: 05/02/21 Time of Service: 10:45 Informed Consent Informed Consent: Induction of Labor Contractions Monitor Mode: External Contraction Frequency(min): evry 5 Contraction Duration(sec): 50-60 Intensity: Mild Fetus A Monitor: External (US) Heart Rate Baseline: 130 Presentation: Vertex Variability: Moderate (6-25 BPM) Categories: Category I FHR Rhythm: Regular Accelerations: 15 X 15 Decelerations: None Assessment and Plan Assessment and plan (1) Spontaneous rupture of amniotic membranes: Status: Acute Assessment and plan: Pitocin is infusing at 1 mu/min and will continue to increase rate every 30 minutes to maintain adequate contraction pattern. Anticipate . Objective Abnormal lab results 05/02/21 Range/Units 06:43 RBC 3.82 L (3.93-5.22) 10^6/uL Hgb 10.9 L (11.2-15.7) g/dL Hct 33.2 L (36.0-46.0) % Temp Pulse Resp BP Pulse Ox 98.2 F 103 H 20 101/60 99 05/02/21 08:13 05/02/21 10:41 05/02/21 08:13 05/02/21 10:35 05/02/21 10:41 Laboratory Results WBC 10.06 10^3/uL (4.4-10.8) 05/02/21 06:43 RBC 3.82 10^6/uL (3.93-5.22) L 05/02/21 06:43 Hgb 10.9 g/dL (11.2-15.7) L 05/02/21 06:43 Hct 33.2 % (36.0-46.0) L 05/02/21 06:43 MCV 86.9 fL (80-95) 05/02/21 06:43 MCH 28.5 pg (27.0-33.0) 05/02/21 06:43 MCHC 32.8 % (32.0-36.0) 05/02/21 06:43 RDW 14.1 % (11.7-14.6) 05/02/21 06:43 Plt Count 231 10^3/uL (130-400) 05/02/21 06:43 MPV 9.7 fL (8.0-11.0) 05/02/21 06:43 COVID-19 Source Nasal/Nares 05/02/21 04:30 SARS-CoV-2 (PCR) Negative (Negative) 05/02/21 04:30 Patient ABO/Rh O Positive 05/02/21 06:43 Antibody Screen NEGATIVE 05/02/21 06:43 Subjective Patient Reports: No new Complaints Interval history since last seen: Epidural placed by Madiha Girard. There was some difficulty with placement but it is in place and Sejal is resting comfortably. Results Hemoglobin/Hematocrit: Hgb 10.9 g/dL (11.2-15.7) L 05/02/21 06:43 Hct 33.2 % (36.0-46.0) L 05/02/21 06:43 Abnormal Lab Findings: Abnormal Labs 05/02/21 06:43 RBC 3.82 L Hgb 10.9 L Hct 33.2 L
--- NOTE | 2021-05-02 10:55 | W.ANESNEU ---
Epidural/Spinal Catheter Date Performed: 05/02/21 Procedure Start: 09:50 Procedure Stop: 10:45 Requesting Provider: Annette Walton Procedure Location: Obstetrics Reason Performed: Labor Epidural Standard Monitors Applied: ECG, Blood Pressure, SpO2 and See EMR for corresponding vital signs Patient Position: Sitting Sedation Given (Indicate Dose Given): No Sedation given Patient Mental Status: Awake Sterility: Hand Hygiene, Surgical Cap, Surgical Mask, Sterile Gloves, Sterile Drape/Sheet, Eye Protection and Chlorhexidine Procedure Location: L2-L3 Interspace Epidural Needle: Tuohy 18 Gauge Needle Length: 3.5 Inch Needle Approach: Midline Epidural Procedure: Skin Prepped, Sterile Drape Placed, 1% Lidocaine to skin and subcutaneous tissue with 25G needle, Tuohy Needle placed, MARILYN to Saline Used, Epidural Catheter Placed, Negative Heme, Negative CSF Flow and Tuohy Needle Removed Catheter Placed?: Catheter Placed Test Dose (Indicate Dose Given): 3ml 1.5% Lidocaine with 1:200K Epinephrine Given and Negative Test Dose Loss of Resistance Depth (cm): 9 Catheter depth at skin (cm): 17 Dressing: Tegaderm Applied, Mastisol Used and Dressing reinforced with Tape Epidural Provider Bolus (Indicate Dose Given): None Given Additives (Indicate Dose Given ): None Infusion Medication: Medication Infusion Began Medication Infusion: Ropivacaine 0.1% with Fentanyl 2mcg/ml Maintenance Infusion Rate (ml/hour): 10 PCEA Bolus Dose (ml): 5 Block Level: T10 Paresthesia: None Ultrasound: Not Used Number of Attempts (See previous attempts in note section): 2 Procedure Tolerated: No Complications Procedure Outcome: Successful Procedure Comment:: 1st interspace L3/L4 unsuccessful with repositioning of needle. Moved up to L2/L3. Performed By: Madiha Girard
--- NOTE | 2021-05-02 14:19 | W.PM.OBNL1 ---
Date of service: 05/02/21 Time of Service: 14:19 Informed Consent Informed Consent: Induction of Labor Pelvic Exam Dilation: 3 Effacement (%): 60 station: -1 Cervix Position: mid Consistency: soft Vaginal Exam Presentation: Cephalic Pooling: Positive Contractions Monitor Mode: External Contraction Frequency(min): every 3 minutes Contraction Duration(sec): 50-60 Intensity: Mild/Moderate Fetus A Monitor: External (US) Presentation: Cephalic Categories: Category I Characteristics: Normal Accelerations: 15 X 15 Decelerations: None Amniotic Membrane Status: Ruptured (rupture of forebag for large amount of clear fluid, ) Amniotic Fluid: Clear Assessment and Plan Assessment and plan (1) Spontaneous rupture of amniotic membranes: Status: Acute Assessment and plan: Sejal was moved to the commode to attempt to void. Anticpate . Objective Abnormal lab results 05/02/21 Range/Units 06:43 RBC 3.82 L (3.93-5.22) 10^6/uL Hgb 10.9 L (11.2-15.7) g/dL Hct 33.2 L (36.0-46.0) % Temp Pulse Resp BP Pulse Ox 98.2 F 99 H 18 118/67 99 05/02/21 13:15 05/02/21 14:09 05/02/21 11:04 05/02/21 14:05 05/02/21 14:09 Laboratory Results WBC 10.06 10^3/uL (4.4-10.8) 05/02/21 06:43 RBC 3.82 10^6/uL (3.93-5.22) L 05/02/21 06:43 Hgb 10.9 g/dL (11.2-15.7) L 05/02/21 06:43 Hct 33.2 % (36.0-46.0) L 05/02/21 06:43 MCV 86.9 fL (80-95) 05/02/21 06:43 MCH 28.5 pg (27.0-33.0) 05/02/21 06:43 MCHC 32.8 % (32.0-36.0) 05/02/21 06:43 RDW 14.1 % (11.7-14.6) 05/02/21 06:43 Plt Count 231 10^3/uL (130-400) 05/02/21 06:43 MPV 9.7 fL (8.0-11.0) 05/02/21 06:43 COVID-19 Source Nasal/Nares 05/02/21 04:30 SARS-CoV-2 (PCR) Negative (Negative) 05/02/21 04:30 Patient ABO/Rh O Positive 05/02/21 06:43 Antibody Screen NEGATIVE 05/02/21 06:43 Subjective Patient Reports: No new Complaints Interval history since last seen: Sejal slept wellon her left side. She is comfortable. Results Hemoglobin/Hematocrit: Hgb 10.9 g/dL (11.2-15.7) L 05/02/21 06:43 Hct 33.2 % (36.0-46.0) L 05/02/21 06:43 Abnormal Lab Findings: Abnormal Labs 05/02/21 06:43 RBC 3.82 L Hgb 10.9 L Hct 33.2 L
[2021-05-02] MEDS: Sodium Citrate 30 ML CUP PO (15:10)
--- NOTE | 2021-05-02 16:04 | W.PM.OBNL1 ---
Date of service: 05/02/21 Time of Service: 16:04 Informed Consent Informed Consent: Induction of Labor Pelvic Exam Dilation: 5 Effacement (%): 70 station: -1 Cervix Position: mid Consistency: soft Vaginal Exam Presentation: Vertex Pooling: Positive Contractions Monitor Mode: External Contraction Frequency(min): every 3 minutes Contraction Duration(sec): 50-60 Intensity: Moderate/Strong Fetus A Monitor: External (US) Heart Rate Baseline: 130 Presentation: Vertex Variability: Moderate (6-25 BPM) Categories: Category II FHR Rhythm: Regular Accelerations: 15 X 15 Decelerations: Variable Amniotic Membrane Status: Ruptured Assessment and Plan Assessment and plan (1) Spontaneous rupture of amniotic membranes: Status: Acute Assessment and plan: Will continue to assess FHR pattern. (2) Slow progress in first stage of labor: Status: Acute Assessment and plan: PROM x [address] Brooks was notified of Sejal's progress. Objective Abnormal lab results 05/02/21 Range/Units 06:43 RBC 3.82 L (3.93-5.22) 10^6/uL Hgb 10.9 L (11.2-15.7) g/dL Hct 33.2 L (36.0-46.0) % Temp Pulse Resp BP Pulse Ox 98.6 F 108 H 18 120/72 98 05/02/21 15:21 05/02/21 16:02 05/02/21 14:29 05/02/21 15:26 05/02/21 16:02 Laboratory Results WBC 10.06 10^3/uL (4.4-10.8) 05/02/21 06:43 RBC 3.82 10^6/uL (3.93-5.22) L 05/02/21 06:43 Hgb 10.9 g/dL (11.2-15.7) L 05/02/21 06:43 Hct 33.2 % (36.0-46.0) L 05/02/21 06:43 MCV 86.9 fL (80-95) 05/02/21 06:43 MCH 28.5 pg (27.0-33.0) 05/02/21 06:43 MCHC 32.8 % (32.0-36.0) 05/02/21 06:43 RDW 14.1 % (11.7-14.6) 05/02/21 06:43 Plt Count 231 10^3/uL (130-400) 05/02/21 06:43 MPV 9.7 fL (8.0-11.0) 05/02/21 06:43 COVID-19 Source Nasal/Nares 05/02/21 04:30 SARS-CoV-2 (PCR) Negative (Negative) 05/02/21 04:30 Patient ABO/Rh O Positive 05/02/21 06:43 Antibody Screen NEGATIVE 05/02/21 06:43 Subjective Patient Reports: No new Complaints Interval history since last seen: Resting comfortably Results Hemoglobin/Hematocrit: Hgb 10.9 g/dL (11.2-15.7) L 05/02/21 06:43 Hct 33.2 % (36.0-46.0) L 05/02/21 06:43 Abnormal Lab Findings: Abnormal Labs 05/02/21 06:43 RBC 3.82 L Hgb 10.9 L Hct 33.2 L
--- NOTE | 2021-05-02 19:45 | W.OBDELIVERY ---
Date of service: 05/02/21 Time of Service: 19:45 OB Labor/ Delivery Information Baby A Delivery Delivery Method: Spontaneaous Presentation: Cephalic Cephalic Position: Vertex Vertex Position: Right Occipital Anterior Cord Description-Baby A: 3 Vessels Amniotic Fluid: Clear Estimated Blood Loss: 250 Delivery Outcome: Liveborn Transferred: Remains with Mother Note: FHTs 130s during first stage of labor with variable decelerations noted associated with contractions. FHTs 130s with occasional variable decellerations to 100 in second stage. She rogressed to full dilation and began pushing. Second stage huddle was done. Spontaneous delivery of female delivered in HARITHA position. There was a tight nuchal cord and baby was delivered by somersault maneuver. Baby was placed on mother's abdomen and dried and stimulated. Spontaneous cry. Cord was clamped and cut by the baby's father. The placenta delivered spontaneously and appears to by intact with a three vessel cord. Pitocin was administered after delivery of the placenta. The perineum was inspected and a second degree laceration was repaired under epidural anlegesia. The baby is bottlefeeding. After delivery, Mother and baby Sandra and father of the baby were stable and bonding well in the delivery room and there were no complications. Providers Nurse Roller Coaster Engineer: Annette Walton Nurse: Es Bellamy Nurse: Geo Torres Other: Dominga VERNON Labor/Delivery Information Steroids Given: None Reason Steroids Not Administered: N/A Group Beta Strep: Negative Rubella Status: Immune Blood Type: O+ Varicella Immunity: Immune Stages of Labor Onset of Labor Date: 05/02/21 Onset of Labor Time: 02:30 Complete Dilatation Date: 05/02/21 Complete Dilatation Time: 18:35 Labor - Stage 1 Duration: 0 minutes ROM Baby A: 05/02/21 ROM Baby A: 14:09 Delivery Date-Baby A: 05/02/21 Infant Delivery Time-Baby A: 18:58 Labor Stage 2 Duration: 23 minutes Placenta Delivery Date-Baby A: 05/02/21 Placenta Delivery Time-Baby A: 19:04 Labor-Stage 3 Duration: 6 minutes Total Length of Labor-Baby A: 16 hours and 28 minutes Placenta Status: Delivered Baby A Infant Gender: Female Gestational Age in Weeks/Days: 40 Weeks and 5 Days Interventions Repair of Laceration Type: Perineal , Laceration Extension: Second Degree . Sponge Count Correct: No Sponges Placed in Vagina , Sharp Count Correct: Yes . Laceration Repair Note: perineum repaired under epidural analgesia with 3-0 and 2-0 vicryl sutures Hemorrrhage Note Total Blood Loss for PPH Event Quantitative Blood Loss: 250
[2021-05-02] MEDS: Acetaminophen 325 MG TAB 650 MG PO (20:12)
[2021-05-02] MEDS: Ibuprofen 600 MG TAB PO (20:12)
[2021-05-02] MEDS: Hamamelis Leaf/Glycerin 100 EACH BOX PR (21:49)
[2021-05-02] MEDS: Dibucaine 1% 28 GM TUBE TP (21:50)
[2021-05-03 03:15] VITALS: BP 111/68; PULSE 88; RESP 18; TEMP 36.7; O2SAT 99
[2021-05-03 06:54] LABS: HCT 31.4 % (36.0-46.0); HGB 10.4 g/dL (11.2-15.7); MCH 28.5 pg (27.0-33.0); MCHC 33.1 % (32.0-36.0); Platelet Count 236 10^3/uL (130-400); RBC 3.65 10^6/uL (3.93-5.22); RDW 14.2 % (11.7-14.6); RDW-SD 45.1 fL
[2021-05-03 07:29] VITALS: BP 127/87; PULSE 89; RESP 18; TEMP 36.7; O2SAT 97
--- NOTE | 2021-05-03 07:54 | W.ANESPOSTOP ---
Postoperative Evaluation Date, Time and Location Date Performed: 05/03/21 Time Performed: 07:54 Patient Location: Obstetrics Vital Signs Most Recent Imported Vital Signs: Most Recent Vital Signs Temp Pulse Resp BP Pulse Ox 36.7 C 89 18 127/87 97 05/03/21 07:29 05/03/21 07:29 05/03/21 07:29 05/03/21 07:29 05/03/21 07:29 Pain Score Most Recent Pain Score: Most Recent Pain Score Pain Level 0 05/02/21 04:37 Assessment Mental Status: Awake (Alert & Oriented to Patient Baseline) Airway and Respiratory Function: Patent airway with normal (patient baseline) respiratory exam Cardiovascular Function: Hemodynamically Stable Hydration Status: Adequately Hydrated Nausea & Vomiting: No Nausea or Vomiting Pain: Pt. Denies Any Pain Peripheral Nerve Block: Patient did not receive a nerve block
--- NOTE | 2021-05-03 10:31 | OBPPV_ITS ---
Date of service: 05/03/21 Time of Service: 10:31 Assessment and Plan Assessment and plan (1) Term of female : Status: Acute Assessment and plan: Caring for baby independently. Pain is managed well with oral analgesics. Voiding without difficulty. Bottlefeeding well. A - stable mother and baby , Post day 1 P - Discharge to home this evening if [facility] agrees . Routine post instructions reviewed. [facility] Subjective Subjective Interval history: Sejal feels well after vaginal delivery. She is requesting discharge after 24 hours. Patient comments: Pain well controlled baby status: Doing well and Bottle feeding well Exam Physical Exam Vital signs: Temp Pulse Resp BP Pulse Ox 98.1 F 89 18 127/87 97 05/03/21 07:29 05/03/21 07:29 05/03/21 07:29 05/03/21 07:29 05/03/21 07:29 Vital Signs Reviewed: Yes Constitutional Constitutional: no acute distress Respiratory Exam Respiratory Exam: Normal Cardiovascular Exam Cardiovascular Exam: Normal Fundal Exam Fundus: Below Umbilicus and Firm Rectal Exam Rectal Exam: Normal Extremities Exam Extremity Exam: Normal Back/Spine/Pelvis Exam Back Exam: Normal Skin Exam Skin Exam: Normal Psychiatric Exam Psychiatric Exam: Normal Results Hemoglobin/Hematocrit: Hgb 10.4 g/dL (11.2-15.7) L 05/03/21 06:30 Hct 31.4 % (36.0-46.0) L 05/03/21 06:30 Abnormal Lab Findings: Abnormal Labs 05/02/21 05/03/21 06:43 06:30 RBC 3.82 L 3.65 L Hgb 10.9 L 10.4 L Hct 33.2 L 31.4 L
[2021-05-03] MEDS: Acetaminophen 325 MG TAB 650 MG PO ×2 (10:51→19:34)
[2021-05-03 11:39] VITALS: BP 124/84; PULSE 88; RESP 18; TEMP 36.8; O2SAT 96
[2021-05-03 16:07] VITALS: BP 131/83; PULSE 84; RESP 20; TEMP 36.9; O2SAT 97
[2021-05-04 03:15] VITALS: BP 128/79; PULSE 80; RESP 19; TEMP 36.8; O2SAT 98
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
== END 2021-05-04 10:00 | disposition home or self-care (01) | DRG 807 ==
PROVIDERS: Admitting Provider Advanced Practice Midwife; Visit Provider Advanced Practice Midwife
DX: O42.02 Full-term premature rupture of membranes, onset of labor within 24 hours of rupture (principal); Z37.0 Single live birth; Z3A.40 40 weeks gestation of pregnancy; K21.9 Gastro-esophageal reflux disease without esophagitis; F41.9 Anxiety disorder, unspecified; O26.843 Uterine size-date discrepancy, third trimester; O99.62 Diseases of the digestive system complicating childbirth; O99.344 Other mental disorders complicating childbirth; O99.892 Other specified diseases and conditions complicating childbirth; O69.1XX0 Labor and delivery complicated by cord around neck, with compression, not applicable or unspecified; O70.1 Second degree perineal laceration during delivery; Z20.822 Contact with and (suspected) exposure to COVID-19; R87.610 Atypical squamous cells of undetermined significance on cytologic smear of cervix (ASC-US)
CPT/HCPCS: 36415; 85027; 86850; 86900; 86901; 87635